=== PATIENT | female | born 1990 | race African-American/Black ===

== ENCOUNTER 2018-02-17 22:52 | Emergency (ER) | payer MEDICAID ==
[~2018-02-17] VITALS: Ht 157.5 cm; Wt 99.0 kg
[2018-02-17 23:30] VITALS: BP 117/64
== END 2018-02-18 02:32 | disposition left against medical advice (07) ==
LOC: ER 22:52
DX: R19.09 Other intra-abdominal and pelvic swelling, mass and lump (principal); R10.9 Unspecified abdominal pain; J45.909 Unspecified asthma, uncomplicated; F17.200 Nicotine dependence, unspecified, uncomplicated
CPT/HCPCS: 99281